=== PATIENT | male | born 1950 | race Caucasian/White ===

== ENCOUNTER → 2020-12-11 | Day surgery (SDC) | payer MEDICARE, OTHER ==
[2020-12-09 12:10] LABS: BASOPHILS # (AUTO) 0.1 (0.0-0.1); BASOPHILS % 0.9 % (0.0-1.0); EOSINOPHILS # (AUTO) 0.5 (0.0-0.4); EOSINOPHILS % 6.3 % (0.0-6.0); HEMATOCRIT 42.1 % (38.2-49.6); LYMPHOCYTES # (AUTO) 2.5 (1.0-3.2); LYMPHOCYTES % 33.1 % (18.0-39.1); MEAN CORPUSCULAR HEMOGLOBIN 29.2 pg (28-32); MEAN CORPUSCULAR HGB CONC 33.3 g/dL (31-35); MEAN CORPUSCULAR VOLUME 87.7 fL (81-99); MONOCYTES # (AUTO) 0.6 (0.2-0.8); MONOCYTES % 7.4 % (4.4-11.3); NEUTROPHILS % 51.9 % (38.7-80.0); PLATELET COUNT 294 x10e3/uL (140-360); RED CELL DISTRIBUTION WIDTH 14.4 % (11.7-14.4)
[~2020-12-11] MED LIST: ALLOPURINOL PO; ASPIR 8181 MG PO; CENTRUM SILVER1 EAC3 PO; GEMFIBROZIL600 MG PO; GLIMEPIRIDE2 MG PO; K DUR10 MEQ PO; LOSARTAN POTAS100 MG PO; METANX PO; METFORMIN HCL500 MG PO; NIFEDICAL XL30 MG PO; ONGLYZA5 MG PO; PROTONIX PO; SPIRONOLACTONE25 MG PO; TOPROL XL25 MG PO; TRESIBA100 UNIT/1; VICTOZA 2-0.6 MG/0.1; VITAMIN B-121000 MCG PO; VITAMIN C500 MG PO; XIGDUO XR 10 M1 EAC1
[2020-12-11 13:35] VITALS: BP 130/56
== END | disposition home or self-care (01) ==
LOC: OR 09:41
PROVIDERS: ATTEND Internal Medicine Gastroenterology
DX: K20.90 Esophagitis, unspecified without bleeding (principal); D12.3 Benign neoplasm of transverse colon; K29.70 Gastritis, unspecified, without bleeding; K29.80 Duodenitis without bleeding; K58.9 Irritable bowel syndrome, unspecified; K64.8 Other hemorrhoids; E11.9 Type 2 diabetes mellitus without complications; I10 Essential (primary) hypertension; E78.5 Hyperlipidemia, unspecified; E66.9 Obesity, unspecified; Z01.810 Encounter for preprocedural cardiovascular examination; Z01.812 Encounter for preprocedural laboratory examination; Z20.822 Contact with and (suspected) exposure to COVID-19; Z79.84 Long term (current) use of oral hypoglycemic drugs; Z68.38 Body mass index [BMI] 38.0-38.9, adult
CPT/HCPCS: 36415 ×2; 43239; 43450; 45384; 82948; 85025; 88305; 88312; 93005; U0002; 45378

== ENCOUNTER → 2025-01-10 | Day surgery (SDC) | payer MEDICARE, OTHER ==
[2025-01-03 13:19] LABS: BASOPHILS % 0.9 % (0.0-1.0); EOSINOPHILS % 5.7 % (0.0-6.0); LYMPHOCYTES % 38.8 % (18.0-39.1); MONOCYTES % 8.7 % (4.4-11.3); NEUTROPHILS % 45.6 % (38.7-80.0); RED CELL DISTRIBUTION WIDTH 15.0 % (11.7-14.4)
[~2025-01-10] MED LIST changes: +ALLOPURINOL300 MG PO; +DAPAGLIFLOZIN PO; +DEXTROSE 5% 250ML 250 ML IV ONE; +GLUCAGON FOR INJ 1 MG VIAL ONE; +LACTATED RINGER'S 1,000 ML ONE; +LIDOCAINE HCL 2% LOCAL INJ 5 ML SDV VIAL INJ ONE; +LYRICA150 MG PO; +METOCLOPRAMIDE HCL 10 MG/2ML VIAL ONE; +MOUNJARO10 MG/0.5; +OMEGA 3 1,0001 EACH PO; +PANTOPRAZOLE SO40 MG PO; +PROPOFOL IV EMULSION 10 MG/ML 20 ML VIAL ONE; +PROPOFOL IV EMULSION 50 ML IV ONE
[2025-01-10 11:43] VITALS: TEMP 97.2
[2025-01-10 12:00] VITALS: BP 145/70; PULSE 63; RESP 16; O2SAT 95
== END | disposition home or self-care (01) ==
LOC: OR 07:41
PROVIDERS: ATTEND Internal Medicine Gastroenterology
DX: K29.50 Unspecified chronic gastritis without bleeding (principal); Z86.0100 Personal history of colon polyps, unspecified; K22.2 Esophageal obstruction; K57.30 Diverticulosis of large intestine without perforation or abscess without bleeding; K64.8 Other hemorrhoids; E11.9 Type 2 diabetes mellitus without complications; I10 Essential (primary) hypertension; Z01.810 Encounter for preprocedural cardiovascular examination; Z01.812 Encounter for preprocedural laboratory examination; Z79.84 Long term (current) use of oral hypoglycemic drugs; Z79.85 Long-term (current) use of injectable non-insulin antidiabetic drugs; Z79.4 Long term (current) use of insulin; Z79.899 Other long term (current) drug therapy; Z68.37 Body mass index [BMI] 37.0-37.9, adult
CPT/HCPCS: 36415 ×2; 43239; 43450; 45378; 82948; 85025; 88305; 93005; J1610; J2003; J2470; J2704 ×2; J2765; J7121